=== PATIENT | female | born 1950 | race American Indian/Alaskan Native ===

== ENCOUNTER 2016-05-10 08:36 | Outpatient (CLI) | payer MEDICARE ==
--- NOTE | 2016-05-10 11:22 | Fluoroscopy Report ---
FLUOROSCOPY FISTULA/SINUS TRACT INJECTION: HISTORY: Fistula. FINDINGS: Mechanical Engineering Manager film of the abdomen is unremarkable. A small rubber catheter was advanced into a fistula in the umbilical region. Approximately 30 cc of Omnipaque 300 was injected through the fistulous site. There is a medium-sized irregular tract which extends approximately 6-8 cm and communicates with the mid transverse colon. The fistula tract measures between 1-4 mm in diameter along its course. Delayed image of the abdomen demonstrates contrast agent in the distal colon. 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
== END 2016-05-10 08:37 | disposition home or self-care (01) ==
LOC: FLUORO 08:36
PROVIDERS: ATTEND Surgery
DX: K63.2 Fistula of intestine (principal); Z93.2 Ileostomy status
CPT/HCPCS: 49424; 76080; Q9967

== ENCOUNTER 2019-04-09 10:00 | Emergency (ER) | payer MEDICARE ==
[2019-04-09 12:21] LABS: Basophils # (Auto) 0.1 K/mm3 (0.0-0.1); Basophils % (Auto) 0.7 % (0.0-1.8); Eosinophils # (Auto) 0.1 K/mm3 (0.0-0.4); Eosinophils % (Auto) 1.4 % (0.0-4.3); Hematocrit 49.1 % (30.3-42.9); Hemoglobin 16.1 gm/dl (10.1-14.3); Lymphocytes # (Auto) 1.5 K/mm3 (1.2-5.4); Lymphocytes % (Auto) 16.6 % (13.4-35.0); Mean Corpuscular HGB Conc 33 % (30-34); Mean Corpuscular Volume 93 fl (79-97); Monocytes # (Auto) 1.2 K/mm3 (0.0-0.8); Monocytes % (Auto) 13.2 % (0.0-7.3); Platelet Count 146 K/mm3 (140-440); Red Blood Count 5.27 M/mm3 (3.65-5.03); Red Cell Distribution Width 15.5 % (13.2-15.2)
[2019-04-09 12:36] LABS: Albumin 2.9 g/dL (3.9-5); Calcium 9.1 mg/dL (8.4-10.2)
--- NOTE | 2019-04-09 15:27 | Emergency Department Report ---
Blank Doc - Documentation Documentation: 68-year-old female that presents with abdominal pain, n/v and diarrhea. HX of SOB. This initial assessment/diagnostic orders/clinical plan/treatment(s) is/are subject to change based on patient's health status, clinical progression and re- assessment by fellow clinical providers in the ED. Further treatment and workup at subsequent clinical providers discretion. Patient/guardians urged not to elope from the ED as their condition may be serious if not clinically assessed and managed. Initial orders include: 1- Patient sent to [facility] for further evaluation and treatment 2- labs 3- UA 4- XR Abd
--- NOTE | 2019-04-09 16:13 | XRay Report ---
PROCEDURE: ABDOMEN FLAT AND UPRIGHT WITH SINGLE VIEW CHEST HISTORY: abd pain n/v COMPARISON: None. TECHNIQUE: Supine and upright abdominal as well as single view chest radiographs obtained. FINDINGS: Lungs: The lungs are clear. The lung volumes are normal. Pleural Effusion: No evidence of a pleural effusion is seen. Pneumothorax: No evidence of pneumothorax is seen. Cardiac: The heart size is normal. Mediastinal silhouette: The mediastinal silhouette is normal. Hilar regions: The hilar regions are normal in appearance. Pulmonary vascularity: The pulmonary vascularity is normal in appearance. Trachea: The trachea is midline. Skeletal structures: The skeletal structures are normal in appearance. Support hardware: None. Additional findings: Surgical clips in the right upper quadrant. Bowel: The bowel gas pattern is normal in appearance. No evidence of obstruction is seen. No evidence of free air is identified. Calcifications: No abnormal calcifications over the kidneys or along the course of the ureters are se en. No phleboliths in the pelvis are seen. Osseous Structures: The skeletal structures are unremarkable in appearance. Additional findings: None. IMPRESSION: Negative abdomen and chest exams. Status post cholecystectomy. Signer Name: Fer Heller MD Signed: 04/09/2019 4:08 PM Workstation Name: [id number]
[2019-04-09 16:15] LABS: Bacteria,Urine 1+ /HPF (Negative); Bilirubin,Urine NEG (Negative); Blood,Urine MOD (Negative); Color,Urine Yellow (Yellow); Hyaline Casts,Urine 1 /LPF; Mucus,Urine FEW /HPF
--- NOTE | 2019-04-09 17:11 | Emergency Department Report ---
ED General Adult HPI - General Chief complaint: Abdominal Pain Stated complaint: DIARRHEA Time Seen by Provider: 04/09/19 15:26 Source: patient Mode of arrival: Ambulatory Limitations: No Limitations - History of Present Illness Initial comments: 68-year-old female with a history of ileostomy placement and then reversal presents with complaint of diarrhea for the past 3 weeks. Patient also complains of abdominal pain. Patient had had surgery by . Patient also states she has a prior history of small bowel obstruction in the past. Patient currently denies any vomiting. Patient's a her abdominal pain is 8 out of 10. Patient denies any hematochezia or hematemesis. Patient states that her pain has been controlled with Advil. Patient denies any chest pain or shortness of breath. Severity scale (0 -10): 7 - Related Data Home Medications Medication Instructions Recorded Confirmed Last Taken amLODIPine [Norvasc] 10 mg PO DAILY 07/30/15 08/07/15 08/07/15 05:30 Previous Rx's Medication Instructions Recorded Last Taken Type Metoprolol [Lopressor TAB] 25 mg PO BID #60 tablet 08/15/15 Unknown Rx Ciprofloxacin HCl [Ciprofloxacin 500 mg PO Q12HR #14 tab 04/09/19 Unknown Rx TAB] Allergies Allergy/AdvReac Type Severity Reaction Status Date / Time codeine AdvReac Nausea Verified 09/01/14 14:39 morphine AdvReac Nausea Verified 09/01/14 14:39 ED Review of Systems ROS: Stated complaint: DIARRHEA Other details as noted in HPI Constitutional: denies: chills, fever Eyes: denies: eye pain, eye discharge, vision change ENT: denies: ear pain, throat pain Respiratory: denies: cough, shortness of breath, wheezing Cardiovascular: denies: chest pain, palpitations Endocrine: no symptoms reported Gastrointestinal: abdominal pain, diarrhea Genitourinary: denies: urgency, dysuria, discharge Musculoskeletal: denies: back pain, joint swelling, arthralgia Skin: denies: rash, lesions Neurological: denies: headache, weakness, paresthesias Psychiatric: denies: anxiety, depression Hematological/Lymphatic: denies: easy bleeding, easy bruising ED Past Medical Hx - Past Medical History Previous Medical History?: Yes Hx Hypertension: Yes Hx Heart Attack/AMI: No Hx Sickle Cell Disease: No Hx Arthritis: Yes (RIGHT KNEE) Hx Seizures: No Hx HIV: No Additional medical history: left foot painhyperlipidemiabowel obstructions - Surgical History Past Surgical History?: Yes Additional Surgical History: Left foot/ankle surgerycolon surgery/colostomy right abd - Social History Smoking Status: Current Every Day Smoker - Medications Home Medications: Home Medications Medication Instructions Recorded Confirmed Last Taken Type amLODIPine [Norvasc] 10 mg PO DAILY 07/30/15 08/07/15 08/07/15 05:30 History Metoprolol [Lopressor TAB] 25 mg PO BID #60 tablet 08/15/15 Unknown Rx Ciprofloxacin HCl [Ciprofloxacin 500 mg PO Q12HR #14 tab 04/09/19 Unknown Rx TAB] ED Physical Exam - General Limitations: No Limitations General appearance: alert, in no apparent distress - Head Head exam: Present: atraumatic, normocephalic - Eye Eye exam: Present: normal appearance - ENT ENT exam: Present: mucous membranes dry - Neck Neck exam: Present: normal inspection - Respiratory Respiratory exam: Present: normal lung sounds bilaterally. Absent: respiratory distress - Cardiovascular Cardiovascular Exam: Present: regular rate, normal rhythm. Absent: systolic murmur, diastolic murmur, rubs, gallop - GI/Abdominal GI/Abdominal exam: Present: soft, tenderness (diffuse), normal bowel sounds. Absent: guarding, rebound - Extremities Exam Extremities exam: Present: normal inspection - Back Exam Back exam: Present: normal inspection - Neurological Exam Neurological exam: Present: alert, oriented X3 - Psychiatric Psychiatric exam: Present: normal affect, normal mood - Skin Skin exam: Present: warm, dry, intact, normal color. Absent: rash ED Course Vital Signs 04/09/19 04/09/19 04/09/19 10:19 15:28 16:40 Temperature 98.3 F 98.1 F Pulse Rate 100 H 84 Respiratory 18 18 16 Rate Blood Pressure 134/66 Blood Pressure 118/70 [Right] O2 Sat by Pulse 97 98 Oximetry ED Medical Decision Making - Lab Data Result diagrams: 04/09/19 11:40 04/09/19 11:40 - Medical Decision Making Patient currently in minimal distress. Patient ambulatory. Patient has been having diarrhea and has been having no vomiting. Patient case discussed with general surgeon regarding CT findings. Patient to be discharged to follow up with GI as an outpatient. Patient to be given antibiotics for UTI as well on an outpatient basis. - Differential Diagnosis Obstruction; Pancreatitis; Dehdyration; Anemia; Electrolyte Abnormality Critical care attestation.: If time is entered above; I have spent that time in minutes in the direct care of this critically ill patient, excluding procedure time. ED Disposition Clinical Impression: Ileus, Urinary tract infection, Abdominal pain Disposition: TO HOME OR SELFCARE Is pt being admited?: No Condition: Stable Instructions: Abdominal Pain (ED) Prescriptions: Ciprofloxacin HCl [Ciprofloxacin TAB] 500 mg PO Q12HR #14 tab Referrals: PRIMARY CAREMD [Primary Care Provider] - 3-5 Days KURT ROBLEDO MD [Staff Physician] - 3-5 Days Time of Disposition: 19:59 Print Language: MALTESE
--- NOTE | 2019-04-09 18:48 | Cat Scan Report ---
CT abdomen pelvis w con INDICATION: Abdominal pain for 3 weeks. TECHNIQUE: All CT scans at this location are performed using the following dose modulation technique: Automated exposure control. Helical slices were obtained through the abdomen and pelvis. 85 cc of Omnipaque 300 is administered. COMPARISON: CT scan dated 10/28/2014 FINDINGS: Abdomen: There is mild scarring in the left lung base. There is diastases of the rectus sheath. There is dilatation of the biliary system which is new finding. The common bile duct measures approximate ly 9 mm. There is mild intrahepatic biliary dilatation There is a small focal hypodensity in the sple en which measures 8 mm on the current study and measured 5 mm previously there is slight dilatation o f the pancreatic duct. No adenopathy is seen. No mass lesions are identified. Postoperative changes are noted in the bowel. There are fluid-filled distended loops of small bowel i n the mid abdomen changes of prior right hemicolectomy are noted. There is some mild wall thickening within some of the loops of small bowel in the midabdomen. There is a cyst in the right kidney. Atherosclerotic calcifications are noted in the aorta and arteries. Pelvis: There is dilated loop of small bowel in the central pelvis. Surgical teja noted margin dil atation of the bowel may be due to postoperative change. There is no adenopathy. No mass lesions are seen. Of bone windows, no acute osseous abnormalities are seen. IMPRESSION: 1. There dilated loops of small bowel in the midabdomen and pelvis. There is been prior bowel surgery anastomosis which may account for some of the dilatation seen. The possibility of partial small yasmin l obstruction or adynamic ileus is also included in the differential. There is no free air. There are no abnormal fluid collections. There is biliary dilatation. Cause is not determined by this exam. Signer Name: Jf Aguilar MD Signed: 04/09/2019 6:43 PM Workstation Name: [id number]
[2019-04-09] MEDS ORDERED: ACETAMINOPHEN 500 MG TAB PO ONE (19:13)
[2019-04-09 20:24] VITALS: BP 109/64
== END 2019-04-09 20:24 | disposition home or self-care (01) ==
LOC: ED 10:00
DX: N39.0 Urinary tract infection, site not specified (principal); K56.7 Ileus, unspecified; I10 Essential (primary) hypertension; F17.200 Nicotine dependence, unspecified, uncomplicated; Z79.899 Other long term (current) drug therapy; Z88.8 Allergy status to other drugs, medicaments and biological substances
CPT/HCPCS: 36415; 74022; 74177; 80053; 81001; 83690; 85025; 99284; Q9967